=== PATIENT | female | born 2000 | race Caucasian/White ===

== ENCOUNTER 2018-11-26 02:01 | Emergency (ER) | payer OTHER ==
[2018-11-26 02:41] LABS: Rapid Strep Molecular POSITIVE (Negative)
[2018-11-26] MEDS ORDERED: Amoxicillin/Clavulanate TAB* 875 MG PO ONE (03:38)
[2018-11-26] MEDS ORDERED: Ibuprofen TAB* 600 MG PO ONE (03:39)
[2018-11-26] MEDS ORDERED: Lidocaine 2% VISCOUS* 15 ML UDC PO ONE (03:44)
--- NOTE | 2018-11-26 03:50 | ED ---
HPI Febrile Illness - HPI Summary HPI Summary: The patient is a 18 year old female who is presenting to the [facility] with a chief complaint of throat pain. The patient states that she has been having fevers as well. Onset of the symptoms is 11/22/18 (drawer in jacquard loom). The symptoms have worsened in the past few hours as per patient report. The pain is rated to be 6/ 10 in severity. Symptoms are aggravated by nothing. Symptoms are alleviated by nothing. - History of Current Complaint Chief Complaint: EDThroatPain Time Seen by Provider: 11/26/18 03:40 Hx Obtained From: Patient Onset/Duration: Started Minutes Ago - 10/08, Started Days Ago - Timing: Constant Initial Severity: Moderate Current Severity: Moderate Pain Intensity: 6 Pain Scale Used: 0-10 Numeric Aggravating Factors: Nothing Alleviating Factors: Nothing Associated Signs and Symptoms: Sore Throat - Allergy/Home Medications Allergies/Adverse Reactions: Allergies Allergy/AdvReac Type Severity Reaction Status Date / Time hydromorphone [From Dilaudid] Allergy Itching Verified 11/26/18 02:05 oxycodone Allergy See Comment Verified 11/26/18 02:05 prednisone Allergy Hives Verified 11/26/18 02:05 PMH/Surg Hx/FS Hx/Imm Hx Sensory History: Denies: Hx Legally Blind, Hx Deafness Opthamlomology History: Denies: Hx Legally Blind EENT History: Denies: Hx Deafness - Immunization History Date of Tetanus Vaccine: ud Date of Influenza Vaccine: fall 2017 Infectious Disease History: No Infectious Disease History: Denies: Traveled Outside the [place] in Last 30 Days - Family History Known Family History: Positive: Non-Contributory Family History: Reviewed and noncontributory. - Social History Occupation: Student Lives: Dormitory/Roommates Alcohol Use: Occasionally Substance Use Type: Reports: Marijuana Substance Use Comment - Amount & Last Used: 11/25/18 not much Smoking Status (MU): Never Smoked Tobacco Review of Systems Positive: Fever Eyes: Negative Positive: Sore Throat Cardiovascular: Negative Respiratory: Negative Gastrointestinal: Negative Genitourinary: Negative Musculoskeletal: Negative Skin: Negative Neurological: Negative Psychological: Normal All Other Systems Reviewed And Are Negative: Yes Physical Exam - Summary Physical Exam Summary: VITAL SIGNS: Reviewed. GENERAL: Patient is a well-developed and nourished (FEMALE) who is lying comfortable in the stretcher. Patient is not in any acute respiratory distress. HEAD AND FACE: No signs of trauma. No ecchymosis, hematomas or skull depressions. No sinus tenderness. EYES: PERRLA, EOMI x 2, No injected conjunctiva, no nystagmus. EARS: Hearing grossly intact. Ear canals and tympanic membranes are within normal limits. MOUTH: Bilateral tonsillar hyperemia without exudate NECK: Bilateral upper cervical adenopathy CHEST: Symmetric, no tenderness at palpation LUNGS: Clear to auscultation bilaterally. No wheezing or crackles. CVS: Regular rate and rhythm, S1 and S2 present, no murmurs or gallops appreciated. ABDOMEN: Soft, non-tender. No signs of distention. No rebound no guarding, and no masses palpated. Bowel sounds are normal. EXTREMITIES: FROM in all major joints, no edema, no cyanosis or clubbing. NEURO: Alert and oriented x 3. No acute neurological deficits. Speech is normal and follows commands. SKIN: Dry and warm Triage Information Reviewed: Yes Vital Signs On Initial Exam: Initial Vitals Temp Pulse Resp BP Pulse Ox 99.9 F 97 20 117/63 99 11/26/18 02:02 11/26/18 02:02 11/26/18 02:02 11/26/18 02:02 11/26/18 02:02 Vital Signs Reviewed: Yes Diagnostics - Vital Signs Vital Signs Temp Pulse Resp BP Pulse Ox 11/26/18 02:02 99.9 F 97 20 117/63 99 - Laboratory Lab Results: Lab Results 11/26/18 Range/Units 02:17 Group A Strep Rapid Positive A (Negative) Lab Statement: Any lab studies that have been ordered have been reviewed, and results considered in the medical decision making process. Course/Dx - Course Course Of Treatment: The patient is a 18 year old female who is presenting to the [facility] with chief complaint of sore throat. Fevers have also been present. The patient received a strep test in the [facility]. The strep test showed positive findings. The dx will be strep throat and the patient will be discharged home. She is agreeable with this plan. - Diagnoses Provider Diagnoses: Strep throat Discharge - Sign-Out/Discharge Documenting (check all that apply): Patient Departure - DISCHARGE HOME Patient Received Moderate/Deep Sedation with Procedure: No - Discharge Plan Condition: Stable Disposition: HOME Prescriptions: Amoxicillin/Clavulanate TAB* [Augmentin TAB 875*] 875 mg PO BID #20 tab Ibuprofen TAB* [Motrin TAB* 600 MG] 600 mg PO Q6H PRN #30 tab PRN Reason: Fever/Pain Lidocaine 2% VISCOUS* 5 ml PO TID PRN #1 btl PRN Reason: Pain Patient Education Materials: Strep Throat (ED) Referrals: [facility] [Outside] Additional Instructions: RETURN TO THE EMERGENCY DEPARTMENT FOR CHANGING OR WORSENING SYMPTOMS. FOLLOW UP WITH YOUR PRIMARY CARE PROVIDER WITHIN ONE TO TWO DAYS - Attestation Statements Document Initiated by Kathiaibe: Yes Documenting Scribe: Monico Eldridge Provider For Whom Scribe is Documenting (Include Credential): Dr. Joan Baeibida Attestation: Monico Ortez, kharied for Dr. Kartik Gauthier on 11/26/18 at 0401. Status of Scribe Document: Ready
[2018-11-26 04:51] VITALS: BP 112/63
== END 2018-11-26 04:49 | disposition home or self-care (01) ==
LOC: ED 02:01
DX: J02.0 Streptococcal pharyngitis (principal); Z88.8 Allergy status to other drugs, medicaments and biological substances; Z88.5 Allergy status to narcotic agent
CPT/HCPCS: 87651; 99282; A9270-GY